=== PATIENT | female | born 2000 | race Caucasian/White ===

== ENCOUNTER 2018-07-08 20:29 | Emergency (ER) | payer MEDICAID, OTHER ==
[~2018-07-08] VITALS: Ht 165.1 cm; Wt 63.6 kg
[~2018-07-08 20:29] MED LIST: METO-292 PO; NITR100C6 PO; ONDA4TAB12 PO; ONDA4TAB6 PO
[2018-07-08] MEDS ORDERED: acetaminophen 325mg tablet PO ONE (20:45)
[2018-07-08] MEDS ORDERED: ketorolac trometh inj. 60 MG/2 ML VIAL IM ONE (20:45)
[2018-07-08] MEDS ORDERED: diphenhydrAMINE 25mg capsule PO ONE (20:45)
--- NOTE | 2018-07-08 20:49 | NUR ---
CASE #[id number] PER SHAW
[2018-07-08 20:56] VITALS: BP 116/57
[2018-07-08] MEDS ORDERED: ketorolac trometh. 30mg/ml inj. IV ONE (21:05)
== END 2018-07-08 21:53 | disposition home or self-care (01) ==
LOC: ER 20:29 → EEVIPCON 20:29 → ER 21:53
DX: S01.111A Laceration without foreign body of right eyelid and periocular area, initial encounter (principal); S51.812A Laceration without foreign body of left forearm, initial encounter; S70.10XA Contusion of unspecified thigh, initial encounter; J45.909 Unspecified asthma, uncomplicated; Y04.8XXA Assault by other bodily force, initial encounter; Y93.89 Activity, other specified; Y92.89 Other specified places as the place of occurrence of the external cause; Y99.8 Other external cause status
CPT/HCPCS: 12011; 96374; 99283; J1885; Q0163

== ENCOUNTER 2018-10-04 18:57 | Emergency (ER) | payer MEDICAID, OTHER ==
[~2018-10-04] VITALS: Ht 165.1 cm; Wt 65.9 kg
[2018-10-04 21:11] LABS: BASOPHILS # (AUTO) 0.1 X10'3 (0-0.2); BASOPHILS % (AUTO) 0.8 % (0-1); EOSINOPHILS # (AUTO) 0.1 X10'3 (0-0.9); EOSINOPHILS % (AUTO) 1.8 % (0-6); HEMATOCRIT 35.2 % (35.0-45.0); HEMOGLOBIN 11.9 g/dl (12.0-16.0); LYMPHOCYTES # (AUTO) 3.1 X10'3 (1.1-4.8); LYMPHOCYTES % (AUTO) 41.7 % (21-51); MEAN CORPUSCULAR HEMOGLOBIN 29.9 PG (27.0-31.0); MEAN CORPUSCULAR HGB CONC 33.8 g/dL (33.0-36.5); MEAN CORPUSCULAR VOLUME 88.6 FL (78-98); MEAN PLATELET VOLUME 7.5 FL (7.4-10.4); MONOCYTES # (AUTO) 0.7 X10'3 (0-0.9); MONOCYTES % (AUTO) 9.4 % (2-12); NEUTROPHILS # (AUTO) 3.4 X10'3 (1.8-7.7); NEUTROPHILS % (AUTO) 46.3 % (42-75); PLATELET COUNT 333 X10'3 (140-440); RED BLOOD COUNT 3.97 X10'6 (4.20-5.60); WHITE BLOOD COUNT 7.4 X10'3 (4.5-11.0)
[2018-10-04 21:45] LABS: CLARITY,URINE CLEAR (Clear); COLOR,URINE YELLOW (Yellow); GLUCOSE, URINE NEGATIVE (Neg); KETONES,URINE NEGATIVE (Neg); LEUKOCYTE ESTERASE ,URINE NEGATIVE (Neg); NITRITES, URINE NEGATIVE (Neg); OCCULT BLOOD,URINE SMALL (Neg); PROTEIN,URINE TRACE mg/dl (Neg); UROBILINOGEN,URINE 0.2 E.U/dL (0.2-1.0)
[2018-10-04 21:51] LABS: UA COLLECTION TYPE CLN CATCH MIDSTREAM
[2018-10-04 22:10] LABS: BACTERIA,URINE 1+ /HPF (Neg); MUCUS STRANDS MODERATE /LPF (Neg); RBC,URINE NONE SEEN /HPF (0-2); SQUAMOUS EPITHELIAL CELL,UR MANY /LPF (FEW); WBC,URINE 0-4 /HPF (0-4)
[2018-10-04 23:17] VITALS: BP 106/70
== END 2018-10-04 23:00 | disposition home or self-care (01) ==
LOC: ER 18:57
DX: O03.9 Complete or unspecified spontaneous abortion without complication (principal); O99.511 Diseases of the respiratory system complicating pregnancy, first trimester; J45.909 Unspecified asthma, uncomplicated; Z79.899 Other long term (current) drug therapy; Z3A.01 Less than 8 weeks gestation of pregnancy
CPT/HCPCS: 36415; 76801; 76830; 81001; 84702; 85025; 86900; 86901; 99284

== ENCOUNTER 2018-11-25 22:13 | Emergency (ER) | payer MEDICAID ==
[~2018-11-25] VITALS: Ht 165.1 cm; Wt 61.6 kg
[2018-11-25] MEDS ORDERED: albuterol 2.5 mg/0.5ml nebule NEB ONE (23:20)
[2018-11-25] MEDS ORDERED: dexamethasone 4mg tablet PO ONE (23:20)
[2018-11-25] MEDS ORDERED: azithromycin 250mg tablet PO ONE (23:25)
[2018-11-25] MEDS ORDERED: CefTRIAXone 250MG IM Kit w/LIDOcaine IM ONE (23:25)
[2018-11-25] MEDS ORDERED: ALBU6.7H9 INH (23:28)
[2018-11-25] MEDS ORDERED: albuterol 2.5 MG/3 ML nebule NEB ONE (23:30)
[2018-11-26 00:06] VITALS: BP 116/62
== END 2018-11-26 00:08 | disposition home or self-care (01) ==
LOC: ER 22:15
DX: J45.901 Unspecified asthma with (acute) exacerbation (principal); A74.9 Chlamydial infection, unspecified; F17.200 Nicotine dependence, unspecified, uncomplicated; R06.02 Shortness of breath; Z79.899 Other long term (current) drug therapy
CPT/HCPCS: 94640; 94760; 96372; 99283; J0696; J8540; J7611

== ENCOUNTER 2018-12-03 15:12 | Emergency (ER) | payer MEDICAID ==
[~2018-12-03] VITALS: Ht 165.1 cm; Wt 61.8 kg
[~2018-12-03 15:12] MED LIST changes: +ALBU6.7H9 INH
[2018-12-03 15:52] VITALS: BP 120/85
[2018-12-03] MEDS ORDERED: proCHLORperazine 10 MG/2 ml inj IV ONE (16:25)
[2018-12-03] MEDS ORDERED: normal saline 1000ML IV soln IVB ONE (16:25)
[2018-12-03] MEDS ORDERED: diphenhydrAMINE 50 mg/ml inj IV ONE (16:25)
[2018-12-03 16:36] LABS: BASOPHILS % (AUTO) 0.6 % (0-1); EOSINOPHILS # (AUTO) 0.2 X10'3 (0-0.9); EOSINOPHILS % (AUTO) 2.2 % (0-6); HEMATOCRIT 36.8 % (35.0-45.0); HEMOGLOBIN 12.4 g/dl (12.0-16.0); LYMPHOCYTES % (AUTO) 28.5 % (21-51); MEAN CORPUSCULAR HEMOGLOBIN 29.8 PG (27.0-31.0); MEAN CORPUSCULAR HGB CONC 33.6 g/dL (33.0-36.5); MEAN CORPUSCULAR VOLUME 88.7 FL (78-98); MEAN PLATELET VOLUME 7.9 FL (7.4-10.4); MONOCYTES # (AUTO) 0.8 X10'3 (0-0.9); NEUTROPHILS # (AUTO) 4.1 X10'3 (1.8-7.7); NEUTROPHILS % (AUTO) 57.7 % (42-75); PLATELET COUNT 257 X10'3 (140-440); RED BLOOD COUNT 4.15 X10'6 (4.20-5.60); RED CELL DISTRIBUTION WIDTH 12.7 % (11.5-14.5); WHITE BLOOD COUNT 7.1 X10'3 (4.5-11.0)
[2018-12-03 16:43] LABS: ALBUMIN 3.8 G/DL (3.4-5.0); ANION GAP 8 (8-16); BLOOD UREA NITROGEN 8 MG/DL (7-18); BUN/CREATININE RATIO 13.1 (6.6-38.0); CALCIUM 8.9 MG/DL (8.5-10.1); CHLORIDE 108 MMOL/L (99-107); CREATININE 0.61 MG/DL (0.40-0.90); GLUCOSE 81 MG/DL (70-104); POTASSIUM 3.9 MMOL/L (3.5-5.1); SODIUM 142 MMOL/L (135-145); TOTAL CARBON DIOXIDE 26.2 MMOL/L (24-32); eGFR > 90 ML/MIN
[2018-12-03] MEDS ORDERED: ONDA4TAB6 PO (17:05)
== END 2018-12-03 17:34 | disposition home or self-care (01) ==
LOC: ER 15:12
DX: R11.2 Nausea with vomiting, unspecified (principal); R12 Heartburn; J45.909 Unspecified asthma, uncomplicated; Z79.899 Other long term (current) drug therapy
CPT/HCPCS: 36415; 80048; 85025; 96361; 96374; 96375; 99283; J0780; J1200; J7030

== ENCOUNTER 2018-12-11 20:19 | Emergency (ER) | payer MEDICAID ==
[~2018-12-11] VITALS: Ht 165.1 cm; Wt 61.4 kg
[2018-12-11 20:23] VITALS: BP 118/72
[2018-12-11] MEDS ORDERED: fluconazole 100mg tablet PO ONE (21:10)
== END 2018-12-11 21:33 | disposition home or self-care (01) ==
LOC: ER 20:19
DX: L98.8 Other specified disorders of the skin and subcutaneous tissue (principal); J45.909 Unspecified asthma, uncomplicated; Z79.899 Other long term (current) drug therapy
CPT/HCPCS: 99282

== ENCOUNTER 2019-12-29 12:43 | Emergency (ER) | payer MEDICAID ==
[~2019-12-29] VITALS: Ht 165.1 cm; Wt 67.7 kg
[2019-12-29 12:47] VITALS: BP 121/82
[2019-12-29] MEDS ORDERED: LIDOcaine 1% W/epiNEPHrine 1:200,000 10ml vial IJ ONE (14:30)
[2019-12-29] MEDS ORDERED: CLIN150C8 PO (15:33)
--- NOTE | 2019-12-29 16:04 | NUR ---
pt evaluated by MD before RN was able to evaluate pt
== END 2019-12-29 16:05 | disposition home or self-care (01) ==
LOC: ER 12:43
DX: K13.0 Diseases of lips (principal); L02.01 Cutaneous abscess of face; J45.909 Unspecified asthma, uncomplicated; Z79.2 Long term (current) use of antibiotics; Z79.899 Other long term (current) drug therapy
CPT/HCPCS: 10060; 99283

== ENCOUNTER 2020-02-06 21:31 | Emergency (ER) | payer SELFPAY ==
[~2020-02-06] VITALS: Ht 165.1 cm; Wt 65.9 kg
[~2020-02-06 21:31] MED LIST changes: +CLIN150C8 PO
[2020-02-06 21:35] VITALS: BP 109/66
== END 2020-02-06 22:42 | disposition home or self-care (01) ==
LOC: ER 21:33
DX: S81.811A Laceration without foreign body, right lower leg, initial encounter (principal); J45.909 Unspecified asthma, uncomplicated; Z87.440 Personal history of urinary (tract) infections; Z79.2 Long term (current) use of antibiotics; Z79.899 Other long term (current) drug therapy; X58.XXXA Exposure to other specified factors, initial encounter; Y93.89 Activity, other specified; Y92.89 Other specified places as the place of occurrence of the external cause; Y99.8 Other external cause status
CPT/HCPCS: 73560; 99283

== ENCOUNTER 2020-03-08 10:27 | Emergency (ER) | payer MEDICAID, OTHER ==
[~2020-03-08] VITALS: Ht 165.1 cm; Wt 68.0 kg
[2020-03-08] MEDS ORDERED: normal saline 1000ML IV soln IVB ONE (11:55)
[2020-03-08] MEDS ORDERED: ondansetron/PF 4mg/2ml inj IV ONE (11:55)
[2020-03-08] MEDS ORDERED: ONDA4TAB6 PO (11:59)
[2020-03-08 12:40] LABS: BASOPHILS % (AUTO) 0.2 % (0-1); EOSINOPHILS # (AUTO) 0.1 X10'3 (0-0.9); EOSINOPHILS % (AUTO) 0.5 % (0-6); HEMATOCRIT 33.7 % (35.0-45.0); HEMOGLOBIN 11.5 g/dl (12.0-16.0); LYMPHOCYTES # (AUTO) 1.2 X10'3 (1.1-4.8); MEAN CORPUSCULAR HEMOGLOBIN 30.3 PG (27.0-31.0); MEAN CORPUSCULAR HGB CONC 34.1 g/dL (33.0-36.5); MEAN CORPUSCULAR VOLUME 88.8 FL (78-98); MEAN PLATELET VOLUME 7.8 FL (7.4-10.4); MONOCYTES # (AUTO) 0.6 X10'3 (0-0.9); MONOCYTES % (AUTO) 5.6 % (2-12); NEUTROPHILS % (AUTO) 82.7 % (42-75); PLATELET COUNT 344 X10'3 (140-440); RED BLOOD COUNT 3.79 X10'6 (4.20-5.60); RED CELL DISTRIBUTION WIDTH 12.8 % (11.5-14.5); WHITE BLOOD COUNT 10.9 X10'3 (4.5-11.0)
[2020-03-08 12:56] LABS: ALANINE AMINOTRANSFERASE 16 U/L (12-78); ALBUMIN 3.8 G/DL (3.4-5.0); ALBUMIN/GLOBULIN RATIO 1.1 (1.1-1.5); ALKALINE PHOSPHATASE 52 IU/L (46-116); ANION GAP 9 (8-16); ASPARTATE AMINO TRANSFERASE 13 U/L (10-37); BILIRUBIN,TOTAL 0.5 MG/DL (0.1-1.0); BLOOD UREA NITROGEN 6 MG/DL (7-18); BUN/CREATININE RATIO 12.2 (6.6-38.0); CALCIUM 9.1 MG/DL (8.5-10.1); CHLORIDE 106 MMOL/L (99-107); CREATININE 0.49 MG/DL (0.40-0.90); GLUCOSE 92 MG/DL (70-104); SODIUM 140 MMOL/L (135-145); TOTAL CARBON DIOXIDE 25.1 MMOL/L (24-32); TOTAL PROTEIN 7.3 G/DL (6.4-8.2); eGFR > 90 ML/MIN
[2020-03-08 13:11] VITALS: BP 92/52
== END 2020-03-08 13:12 | disposition home or self-care (01) ==
LOC: ER 10:28
DX: O21.9 Vomiting of pregnancy, unspecified (principal); Z3A.08 8 weeks gestation of pregnancy; O99.511 Diseases of the respiratory system complicating pregnancy, first trimester; J45.909 Unspecified asthma, uncomplicated; O99.321 Drug use complicating pregnancy, first trimester; F12.90 Cannabis use, unspecified, uncomplicated; O99.332 Smoking (tobacco) complicating pregnancy, second trimester; F17.210 Nicotine dependence, cigarettes, uncomplicated; Z79.899 Other long term (current) drug therapy
CPT/HCPCS: 36415; 80053; 85025; 96374; 99283; J2405; J7030

== ENCOUNTER 2021-11-28 15:37 | Emergency (ER) | payer MEDICAID ==
[~2021-11-28] VITALS: Ht 165.1 cm; Wt 66.8 kg
[2021-11-28 16:17] LABS: CLARITY,URINE CLOUDY (Clear); COLOR,URINE YELLOW (Yellow); GLUCOSE, URINE NEGATIVE (Neg); KETONES,URINE TRACE mg/dl (Neg); LEUKOCYTE ESTERASE ,URINE MODERATE (Neg); NITRITES, URINE NEGATIVE (Neg); OCCULT BLOOD,URINE TRACE-INTACT (Neg); PH,URINE 8.5 (4.8-8.0); PROTEIN,URINE TRACE mg/dl (Neg); URINE HCG NEGATIVE (NEG); UROBILINOGEN,URINE 0.2 E.U/dL (0.2-1.0)
[2021-11-28 16:23] LABS: UA COLLECTION TYPE CLN CATCH MIDSTREAM
[2021-11-28 16:36] LABS: BACTERIA,URINE 1+ /HPF (Neg); RBC,URINE 0-2 /HPF (0-2)
[2021-11-28 16:38] LABS: SQUAMOUS EPITHELIAL CELL,UR MANY /LPF (FEW)
[2021-11-28 16:49] LABS: CLARITY,URINE CLOUDY (Clear); COLOR,URINE YELLOW (Yellow); GLUCOSE, URINE NEGATIVE (Neg); KETONES,URINE TRACE mg/dl (Neg); LEUKOCYTE ESTERASE ,URINE MODERATE (Neg); NITRITES, URINE NEGATIVE (Neg); OCCULT BLOOD,URINE NEGATIVE (Neg); PROTEIN,URINE TRACE mg/dl (Neg)
[2021-11-28 16:50] LABS: UA COLLECTION TYPE NON-SPECIFIED
[2021-11-28] MEDS ORDERED: ketorolac trometh. 30mg/ml inj. IV ONE (16:55)
[2021-11-28] MEDS ORDERED: ondansetron/PF 4mg/2ml inj IV ONE (16:55)
[2021-11-28] MEDS ORDERED: normal saline 1000ML IV soln IVB ONE (16:55)
[2021-11-28 16:58] LABS: RBC,URINE 0-2 /HPF (0-2)
[2021-11-28 16:59] LABS: BACTERIA,URINE 1+ /HPF (Neg); MUCUS STRANDS MANY /LPF (Neg); SQUAMOUS EPITHELIAL CELL,UR MANY /LPF (FEW)
[2021-11-28 17:15] LABS: BASOPHILS % (AUTO) 0.5 % (0-1); EOSINOPHILS # (AUTO) 0.1 X10'3 (0-0.9); EOSINOPHILS % (AUTO) 1.2 % (0-6); HEMATOCRIT 34.4 % (35.0-45.0); HEMOGLOBIN 11.6 g/dl (12.0-16.0); LYMPHOCYTES # (AUTO) 0.3 X10'3 (1.1-4.8); LYMPHOCYTES % (AUTO) 4.2 % (21-51); MEAN CORPUSCULAR HEMOGLOBIN 28.8 PG (27.0-31.0); MEAN CORPUSCULAR HGB CONC 33.7 g/dL (33.0-36.5); MEAN CORPUSCULAR VOLUME 85.7 FL (78-98); MONOCYTES # (AUTO) 0.8 X10'3 (0-0.9); MONOCYTES % (AUTO) 13.4 % (2-12); NEUTROPHILS % (AUTO) 80.7 % (42-75); PLATELET COUNT 250 X10'3 (140-440); RED BLOOD COUNT 4.02 X10'6 (4.20-5.60); RED CELL DISTRIBUTION WIDTH 12.8 % (11.5-14.5); WHITE BLOOD COUNT 6.2 X10'3 (4.5-11.0)
[2021-11-28 17:26] LABS: ALANINE AMINOTRANSFERASE 11 U/L (12-78); ALBUMIN/GLOBULIN RATIO 1.2 (1.1-1.5); ALKALINE PHOSPHATASE 57 IU/L (46-116); ANION GAP 14 (8-16); ASPARTATE AMINO TRANSFERASE 9 U/L (10-37); BILIRUBIN,TOTAL 0.3 MG/DL (0.1-1.0); BLOOD UREA NITROGEN 5 MG/DL (7-18); BUN/CREATININE RATIO 7.8 (6.6-38.0); CALCIUM 8.9 MG/DL (8.5-10.1); CHLORIDE 104 MMOL/L (99-107); CREATININE 0.64 MG/DL (0.40-0.90); GLUCOSE 93 MG/DL (70-104); POTASSIUM 3.1 MMOL/L (3.5-5.1); SODIUM 141 MMOL/L (135-145); TOTAL CARBON DIOXIDE 22.7 MMOL/L (24-32); TOTAL PROTEIN 7.4 G/DL (6.4-8.2); eGFR > 90 ML/MIN
[2021-11-28] MEDS ORDERED: potassium Cl 20 mEq SR tablet PO ONE (17:55)
[2021-11-28 18:59] LABS: CLARITY,URINE CLEAR (Clear); COLOR,URINE YELLOW (Yellow); GLUCOSE, URINE NEGATIVE (Neg); KETONES,URINE 40 mg/dl (Neg); LEUKOCYTE ESTERASE ,URINE NEGATIVE (Neg); NITRITES, URINE NEGATIVE (Neg); OCCULT BLOOD,URINE NEGATIVE (Neg); PROTEIN,URINE NEGATIVE (Neg); UROBILINOGEN,URINE 0.2 E.U/dL (0.2-1.0)
[2021-11-28 19:04] LABS: UA COLLECTION TYPE NON-SPECIFIED
[2021-11-28] MEDS ORDERED: ONDA4TAB12 PO (19:47)
[2021-11-28] MEDS ORDERED: IBUP-1986 PO (19:47)
[2021-11-28 19:55] VITALS: BP 99/65
== END 2021-11-28 19:58 | disposition home or self-care (01) ==
LOC: ER 15:38
DX: R10.30 Lower abdominal pain, unspecified (principal); M54.59 Other low back pain; R19.7 Diarrhea, unspecified; R11.10 Vomiting, unspecified; J45.909 Unspecified asthma, uncomplicated; F12.10 Cannabis abuse, uncomplicated; Z79.899 Other long term (current) drug therapy; Z79.2 Long term (current) use of antibiotics; Z87.448 Personal history of other diseases of urinary system
CPT/HCPCS: 36415; 74176; 80053; 81001; 81003; 81025; 85025; 96361; 96374; 96375; 99285; J1885; J2405; J7030

== ENCOUNTER 2022-05-07 13:25 | Emergency (ER) | payer MEDICAID ==
[~2022-05-07] VITALS: Ht 165.1 cm; Wt 68.2 kg
[~2022-05-07 13:25] MED LIST changes: +ALBU6.7H14 INH; -ALBU6.7H9 INH; +IBUP-1986 PO
[2022-05-07] MEDS ORDERED: normal saline 1000ml 1,000 ML IV ONE ×2 (15:15)
[2022-05-07] MEDS ORDERED: ondansetron/PF 4mg/2ml inj IV ONE (15:15)
[2022-05-07 16:03] LABS: BASOPHILS % (AUTO) 0.2 % (0-1); EOSINOPHILS % (AUTO) 0 % (0-6); HEMOGLOBIN 13.3 g/dl (12.0-16.0); LYMPHOCYTES # (AUTO) 1.5 X10'3 (1.1-4.8); LYMPHOCYTES % (AUTO) 6.3 % (21-51); MEAN CORPUSCULAR HEMOGLOBIN 29.9 PG (27.0-31.0); MEAN CORPUSCULAR HGB CONC 34.1 g/dL (33.0-36.5); MEAN CORPUSCULAR VOLUME 87.9 FL (78-98); MEAN PLATELET VOLUME 7.7 FL (7.4-10.4); MONOCYTES # (AUTO) 1.3 X10'3 (0-0.9); MONOCYTES % (AUTO) 5.6 % (2-12); NEUTROPHILS # (AUTO) 20.5 X10'3 (1.8-7.7); NEUTROPHILS % (AUTO) 87.9 % (42-75); PLATELET COUNT 493 X10'3 (140-440); RED BLOOD COUNT 4.43 X10'6 (4.20-5.60); RED CELL DISTRIBUTION WIDTH 13.1 % (11.5-14.5); WHITE BLOOD COUNT 23.3 X10'3 (4.5-11.0)
[2022-05-07 16:18] LABS: ALANINE AMINOTRANSFERASE 14 U/L (12-78); ALBUMIN 4.4 G/DL (3.4-5.0); ALBUMIN/GLOBULIN RATIO 1.1 (1.1-1.5); ALKALINE PHOSPHATASE 65 IU/L (46-116); ANION GAP 13 (8-16); ASPARTATE AMINO TRANSFERASE 17 U/L (10-37); BILIRUBIN,TOTAL 0.3 MG/DL (0.1-1.0); BLOOD UREA NITROGEN 15 MG/DL (7-18); CALCIUM 9.4 MG/DL (8.5-10.1); CHLORIDE 98 MMOL/L (99-107); CREATININE 0.75 MG/DL (0.40-0.90); GLUCOSE 117 MG/DL (70-104); POTASSIUM 3.3 MMOL/L (3.5-5.1); SODIUM 137 MMOL/L (135-145); TOTAL PROTEIN 8.5 G/DL (6.4-8.2); eGFR > 90 ML/MIN
--- NOTE | 2022-05-07 16:28 | NUR ---
PT HAS IMPROVED AFTER MEDICATION AND IVF, PT HAS NOT HAD ANYMORE NAUSEA OR VOMITTING.
[2022-05-07] MEDS ORDERED: ONDA4TAB12 PO (16:35)
[2022-05-07] MEDS ORDERED: PYRI-3 PO (16:35)
[2022-05-07 16:46] LABS: URINE HCG POSITIVE (NEG)
--- NOTE | 2022-05-07 16:47 | NUR ---
PT PASSED PO CALLENGE.
[2022-05-07 16:53] VITALS: BP 132/86
[2022-05-07 16:58] LABS: CLARITY,URINE CLOUDY (Clear); COLOR,URINE YELLOW (Yellow); GLUCOSE, URINE NEGATIVE (Neg); KETONES,URINE >=80 mg/dl (Neg); LEUKOCYTE ESTERASE ,URINE NEGATIVE (Neg); NITRITES, URINE NEGATIVE (Neg); OCCULT BLOOD,URINE NEGATIVE (Neg); PROTEIN,URINE 100 mg/dl (Neg); UROBILINOGEN,URINE 0.2 E.U/dL (0.2-1.0)
[2022-05-07 16:59] LABS: UA COLLECTION TYPE NON-SPECIFIED
[2022-05-07 17:15] LABS: MUCUS STRANDS MANY /LPF (Neg); SQUAMOUS EPITHELIAL CELL,UR MANY /LPF (FEW)
[2022-05-07 17:16] LABS: BACTERIA,URINE 2+ /HPF (Neg); RBC,URINE 0-2 /HPF (0-2); WBC,URINE 0-4 /HPF (0-4)
== END 2022-05-07 16:56 | disposition home or self-care (01) ==
LOC: ER 13:25
DX: O21.0 Mild hyperemesis gravidarum (principal); O26.891 Other specified pregnancy related conditions, first trimester; E86.0 Dehydration; J45.909 Unspecified asthma, uncomplicated; F12.90 Cannabis use, unspecified, uncomplicated; Z79.899 Other long term (current) drug therapy; Z3A.08 8 weeks gestation of pregnancy
CPT/HCPCS: 36415; 80053; 81001; 81025; 83735; 85025; 96361; 96374; 99283; J2405; J7030; 99285

== ENCOUNTER 2023-08-01 23:04 | Emergency (ER) | payer MEDICAID ==
[~2023-08-01] VITALS: Ht 165.1 cm; Wt 63.6 kg
[~2023-08-01 23:04] MED LIST changes: +CLIN-214 PO; -CLIN150C8 PO; +PYRI-3 PO
[2023-08-01 23:39] LABS: BASOPHILS # (AUTO) 0.1 X10'3 (0-0.2); BASOPHILS % (AUTO) 0.4 % (0-1); EOSINOPHILS # (AUTO) 0.1 X10'3 (0-0.9); EOSINOPHILS % (AUTO) 0.4 % (0-6); HEMATOCRIT 37.4 % (35.0-45.0); HEMOGLOBIN 12.6 g/dl (12.0-16.0); LYMPHOCYTES # (AUTO) 2.3 X10'3 (1.1-4.8); LYMPHOCYTES % (AUTO) 15.9 % (21-51); MEAN CORPUSCULAR HEMOGLOBIN 28.5 PG (27.0-31.0); MEAN CORPUSCULAR HGB CONC 33.8 g/dL (33.0-36.5); MEAN CORPUSCULAR VOLUME 84.1 FL (78-98); MEAN PLATELET VOLUME 8.2 FL (7.4-10.4); MONOCYTES # (AUTO) 0.8 X10'3 (0-0.9); MONOCYTES % (AUTO) 5.5 % (2-12); NEUTROPHILS % (AUTO) 77.8 % (42-75); PLATELET COUNT 407 X10'3 (140-440); RED BLOOD COUNT 4.44 X10'6 (4.20-5.60); RED CELL DISTRIBUTION WIDTH 14.5 % (11.5-14.5); WHITE BLOOD COUNT 14.2 X10'3 (4.5-11.0)
[2023-08-01 23:58] LABS: ANION GAP 11 (8-16); BLOOD UREA NITROGEN 8 MG/DL (7-18); BUN/CREATININE RATIO 13.1 (10.0-20.0); CALCIUM 9.8 MG/DL (8.5-10.1); CHLORIDE 97 MMOL/L (99-107); CREATININE 0.61 MG/DL (0.40-0.90); GLUCOSE 88 MG/DL (70-104); POTASSIUM 3.2 MMOL/L (3.5-5.1); PRO BRAIN NATRIURETIC PEPTIDE 43 PG/ML (0-125); SODIUM 128 MMOL/L (135-145); TOTAL CARBON DIOXIDE 19.8 MMOL/L (24-32); eCRCL 127 ML/MIN; eGFR > 90 ML/MIN
[2023-08-02] MEDS: normal saline 1000ML IV soln IVB ONE (00:58)
[2023-08-02] MEDS: ondansetron/PF 4mg/2ml inj IV ONE ×2 (00:58→08:30)
[2023-08-02 01:03] LABS: BILIRUBIN,URINE SMALL (Neg); CLARITY,URINE SLIGHTLY CLOUDY (Clear); COLOR,URINE YELLOW (Yellow); GLUCOSE, URINE NEGATIVE (Neg); KETONES,URINE >=80 mg/dl (Neg); LEUKOCYTE ESTERASE ,URINE NEGATIVE (Neg); NITRITES, URINE NEGATIVE (Neg); OCCULT BLOOD,URINE NEGATIVE (Neg); PROTEIN,URINE TRACE mg/dl (Neg); URINE HCG POSITIVE (NEG); UROBILINOGEN,URINE 0.2 E.U/dL (0.2-1.0)
[2023-08-02 01:40] LABS: UA COLLECTION TYPE CLN CATCH MIDSTREAM
[2023-08-02 01:41] LABS: SQUAMOUS EPITHELIAL CELL,UR MANY /LPF (FEW)
[2023-08-02 01:42] LABS: BACTERIA,URINE 3+ /HPF (Neg); MUCUS STRANDS FEW /LPF (Neg); RBC,URINE 0-2 /HPF (0-2)
[2023-08-02 01:50] LABS: ALANINE AMINOTRANSFERASE 16 U/L (12-78); ALBUMIN/GLOBULIN RATIO 0.7 (1.1-1.5); ALKALINE PHOSPHATASE 61 IU/L (46-116); ASPARTATE AMINO TRANSFERASE 16 U/L (10-37); BILIRUBIN,DIRECT 0.2 MG/DL (0-0.3); BILIRUBIN,TOTAL 0.5 MG/DL (0.1-1.0); LIPASE 25 U/L (16-77); TOTAL PROTEIN 9.4 G/DL (6.4-8.2)
[2023-08-02 05:06] LABS: BETA HCG,QUANTITATIVE 60372 mIU/ml
[2023-08-02] MEDS: CefTRIAXone 2gm/D5W 50ml BAG 50 ML IV ONE (06:35)
[2023-08-02 08:36] LABS: BASOPHILS % (AUTO) 0.4 % (0-1); EOSINOPHILS % (AUTO) 0.3 % (0-6); HEMATOCRIT 29.6 % (35.0-45.0); HEMOGLOBIN 10.1 g/dl (12.0-16.0); LYMPHOCYTES # (AUTO) 2.2 X10'3 (1.1-4.8); MEAN CORPUSCULAR HEMOGLOBIN 28.7 PG (27.0-31.0); MEAN CORPUSCULAR HGB CONC 34.1 g/dL (33.0-36.5); MEAN CORPUSCULAR VOLUME 84.3 FL (78-98); MEAN PLATELET VOLUME 7.9 FL (7.4-10.4); MONOCYTES # (AUTO) 0.8 X10'3 (0-0.9); MONOCYTES % (AUTO) 8.9 % (2-12); NEUTROPHILS # (AUTO) 6.1 X10'3 (1.8-7.7); NEUTROPHILS % (AUTO) 66.4 % (42-75); PLATELET COUNT 317 X10'3 (140-440); RED BLOOD COUNT 3.51 X10'6 (4.20-5.60); RED CELL DISTRIBUTION WIDTH 14.5 % (11.5-14.5); WHITE BLOOD COUNT 9.2 X10'3 (4.5-11.0)
[2023-08-02 08:45] LABS: D-DIMER 0.61 MG/L FEU (0-0.50); PROTHROMBIN TIME 10.8 SECONDS (9.0-12.0)
[2023-08-02] MEDS ORDERED: ONDA4TAB12 PO (10:47)
[2023-08-02 11:05] VITALS: BP 106/70; PULSE 92; RESP 16; TEMP 98.4; O2SAT 99
== END 2023-08-02 11:07 | disposition home or self-care (01) ==
LOC: ER 23:05
DX: O21.0 Mild hyperemesis gravidarum (principal); Z20.822 Contact with and (suspected) exposure to COVID-19; O26.891 Other specified pregnancy related conditions, first trimester; R10.31 Right lower quadrant pain; E86.0 Dehydration; Z3A.13 13 weeks gestation of pregnancy; J45.909 Unspecified asthma, uncomplicated; F12.90 Cannabis use, unspecified, uncomplicated; Z79.899 Other long term (current) drug therapy; Z79.1 Long term (current) use of non-steroidal anti-inflammatories (NSAID)
CPT/HCPCS: 36415; 71045; 76705; 76801; 76802; 76815; 80048; 80076; 81001; 81025; 83690; 83880; 84484; 84702; 85025; 85379; 85610; 86900; 86901; 87811; 93005; 96361; 96374; 96375; 99285; J0696; J2405; J7030

== ENCOUNTER 2024-12-21 09:01 | Outpatient (CLI) | payer MEDICAID ==
[2024-12-21] VITALS (19 sets, daily range): BP systolic 95–120; BP diastolic 44–73; PULSE 62–125
[~2024-12-21 09:01] MED LIST changes: +ONDA-243 PO; -ONDA4TAB12 PO
== END 2024-12-21 23:59 | disposition home or self-care (01) ==
LOC: CARD DIAG 09:01
PROVIDERS: ATTEND Internal Medicine Interventional Cardiology
DX: R00.2 Palpitations (principal); R55 Syncope and collapse
CPT/HCPCS: 93660